=== PATIENT | male | born 1950 | race Caucasian/White ===

== ENCOUNTER → 2016-11-20 | Outpatient (CLI) | payer BC ==
[~2016-11-20] MED LIST: ASTELIN NASAL S34 ML NS; CHLOR TRIMETON 44 MG PO; MUCINEX DM 30 M1 TE1; MULTIVITAMIN SEN PO; NASACORT OTC NS; PERCOCET 325 MG1 TA2 PO; PRIL40 PO; PRINZIDE 12.5 M1 TAB PO; PROBIOTIC-MAJOR PO
== END ==
LOC: COL.RAD 08:53
DX: I83.92 Asymptomatic varicose veins of left lower extremity (principal); I73.9 Peripheral vascular disease, unspecified; N32.89 Other specified disorders of bladder; Z90.79 Acquired absence of other genital organ(s)
CPT/HCPCS: Q9967

== ENCOUNTER → 2016-11-27 | Outpatient (CLI) | payer BC ==
[~2016-11-27] VITALS: Ht 172.7 cm; Wt 83.6 kg
[2016-11-27 09:28] VITALS: BP 127/84; PULSE 55
== END ==
LOC: COL.CARD 11-25 09:15
DX: R06.00 Dyspnea, unspecified (principal)
CPT/HCPCS: A9502